=== PATIENT | male | born 1990 | race African-American/Black ===

== ENCOUNTER 2021-07-13 23:21 | Emergency (ER) | payer MEDICAID ==
[~2021-07-13] VITALS: Ht 185.4 cm; Wt 98.0 kg
[2021-07-14] MEDS ORDERED: KETOROLAC 60MG/2ML VIAL IM ONE
[2021-07-14 00:35] VITALS: BP 115/74
[2021-07-14] MEDS ORDERED: IBUP-2029 MT (00:37)
== END 2021-07-14 00:36 | disposition home or self-care (01) ==
LOC: ER 23:21
DX: M25.512 Pain in left shoulder (principal)
CPT/HCPCS: 73030; 96372; 99283; J1885